=== PATIENT | male | born 1995 | race Caucasian/White ===

== ENCOUNTER 2022-09-26 19:57 | Emergency (ER) | payer BC ==
[2022-09-26] MEDS ORDERED: Acetaminophen 500 MG Tab PO STA (20:25)
[2022-09-26] MEDS ORDERED: oxyCODONE 5 MG Tab PO STA (20:25)
== END 2022-09-26 22:11 | disposition home or self-care (01) ==
LOC: MW.ED 19:57
DX: S93.401A Sprain of unspecified ligament of right ankle, initial encounter (principal); X50.1XXA Overexertion from prolonged static or awkward postures, initial encounter
CPT/HCPCS: 73610; 73630; 99283; A9270